=== PATIENT | male | born 1980 | race African-American/Black ===

== ENCOUNTER 2019-01-27 07:02 | Emergency (ER) | payer OTHER ==
--- NOTE | 2019-01-27 07:51 | EDM.PDOC ---
ED HPI GENERAL MEDICAL PROBLEM - General Chief Complaint: General Stated Complaint: SOB Time Seen by Provider: 01/27/19 07:47 - History of Present Illness INITIAL COMMENTS - FREE TEXT/NARRATIVE: HISTORY AND PHYSICAL: History of present illness: Patient 38-year-old male presents with concern of intermittent nausea vomiting diarrhea cough congestion cold symptoms over last week these all improved and on arrival here patient denies chest pain shortness breath abdominal pain or other concern. Review of systems: As per history of present illness and below otherwise all systems reviewed and negative. Past medical history: As per history of present illness and as reviewed below otherwise noncontributory. Surgical history: As per history of present illness and as reviewed below otherwise noncontributory. Social history: No reported history of drug or alcohol abuse. Family history: As per history of present illness and as reviewed below otherwise noncontributory. Physical exam: HEENT: Atraumatic, normocephalic, pupils reactive, negative for conjunctival pallor or scleral icterus, mucous membranes moist, throat clear, neck supple, nontender, trachea midline. Lungs: Clear to auscultation, breath sounds equal bilaterally, chest nontender. Heart: S1S2, regular, negative for clicks, rubs, or JVD. Abdomen: Soft, nondistended, nontender. Negative for masses or hepatosplenomegaly. Negative for costovertebral tenderness. Pelvis: Stable nontender. Genitourinary: Deferred. Rectal: Deferred. Extremities: Atraumatic, negative for cords or calf pain. Neurovascular unremarkable. Neuro: Awake, alert, oriented. Cranial nerves II through XII unremarkable. Cerebellum unremarkable. Motor and sensory unremarkable throughout. Exam nonfocal. Diagnostics: CBC CMP lipase chest x-ray EKG Therapeutics: None Impression: #1 medical screening exam #2 probable viral syndrome Definitive disposition and diagnosis as appropriate pending reevaluation and review of above. Headache Pain Score (Numeric/FACES): 5 - Related Data Allergies Allergy/AdvReac Type Severity Reaction Status Date / Time No Known Allergies Allergy Verified 01/27/19 07:13 Home Meds: Home Meds Cyclobenzaprine [Flexeril] 5 mg PO Q6H PRN 01/27/19 [History] Ibuprofen 800 mg PO Q8H PRN 01/27/19 [History] Past Medical History - Past Health History Medical/Surgical History: Denies Medical/Surgical History Musculoskeletal History: Reports: Back Pain, Chronic - Infectious Disease History Infectious Disease History: Reports: None Social & Family History - Family History Family Medical History: Noncontributory - Tobacco Use Smoking Status *Q: Never Smoker - Caffeine Use Caffeine Use: Reports: None ED ROS GENERAL - Review of Systems Review Of Systems: ROS reveals no pertinent complaints other than HPI. ED EXAM, GENERAL - Physical Exam Exam: See Below (See dictation) Course - Vital Signs Last Recorded V/S: Last Vital Signs Temp 36.2 C 01/27/19 07:14 Pulse 82 01/27/19 07:14 Resp 17 01/27/19 07:14 BP 158/117 H 01/27/19 07:14 Pulse Ox 98 01/27/19 07:14 - Orders/Labs/Meds Orders: Active Orders 24 hr Category Date Time Status EKG 12 Lead [EKG Documentation Completion] [RC] STAT Care 01/27/19 07:39 Active Chest 1V Frontal [CR] Stat Exams 01/27/19 07:38 Ordered CBC WITH AUTO DIFF [HEME] Stat Lab 01/27/19 07:38 Ordered COMPREHENSIVE METABOLIC PN,CMP [CHEM] Stat Lab 01/27/19 07:38 Ordered LIPASE [CHEM] Stat Lab 01/27/19 07:38 Ordered Departure - Departure Time of Disposition: 07:50 Disposition: Home, Self-Care 01 Condition: Good Clinical Impression: Encounter for medical screening examination, Viral syndrome - Discharge Information Referrals: PCP,None [Primary Care Provider] - Additional Instructions: The following information is given to patients seen in the emergency department who are being discharged to home. This information is to outline your options for follow-up care. We provide all patients seen in our emergency department with a follow-up referral. The need for follow-up, as well as the timing and circumstances, are variable depending upon the specifics of your emergency department visit. If you don't have a primary care physician on staff, we will provide you with a referral. We always advise you to contact your personal physician following an emergency department visit to inform them of the circumstance of the visit and for follow-up with them and/or the need for any referrals to a consulting specialist. The emergency department will also refer you to a specialist when appropriate. This referral assures that you have the opportunity for followup care with a specialist. All of these measure are taken in an effort to provide you with optimal care, which includes your followup. Under all circumstances we always encourage you to contact your private physician who remains a resource for coordinating your care. When calling for followup care, please make the office aware that this follow-up is from your recent emergency room visit. If for any reason you are refused follow-up, please contact the [facility] emergency department at and asked to speak to the emergency department charge nurse. Push fluids Motrin/Tylenol as directed follow-up primary medical doctor return as needed as discussed - My Orders Last 24 Hours: My Active Orders 01/27/19 07:38 Chest 1V Frontal [CR] Stat CBC WITH AUTO DIFF [HEME] Stat COMPREHENSIVE METABOLIC PN,CMP [CHEM] Stat LIPASE [CHEM] Stat 01/27/19 07:39 EKG 12 Lead [EKG Documentation Completion] [RC] STAT - Assessment/Plan Last 24 Hours: My Active Orders 01/27/19 07:38 Chest 1V Frontal [CR] Stat CBC WITH AUTO DIFF [HEME] Stat COMPREHENSIVE METABOLIC PN,CMP [CHEM] Stat LIPASE [CHEM] Stat 01/27/19 07:39 EKG 12 Lead [EKG Documentation Completion] [RC] STAT
[2019-01-27 08:11] LABS: BLOOD UREA NITROGEN,BUN 14 mg/dL (7.0-18.0); CARBON DIOXIDE,CO2 28.8 mmol/L (21.0-32.0); CHLORIDE,CL 104 mmol/L (98-107); GLUCOSE RANDOM 83 mg/dL (74-106); LIPASE 117 U/L (73-393); POTASSIUM,K 3.9 mmol/L (3.5-5.1); SODIUM,NA 140 mmol/L (136-148)
--- NOTE | 2019-01-27 08:29 | CR ---
INDICATION: Shortness of breath COMPARISON: none TECHNIQUE: AP erect chest performed at 7:55 a.m. FINDINGS: The lungs are clear. There is no evidence of pneumothorax or pneumomediastinum. The heart, mediastinum and pulmonary vessels are of normal size. There is no evidence of pleural fluid. IMPRESSION: Negative chest. Dictated by Serge Mendoza MD @ Jan 27 2019 8:26AM Signed by Dr. Serge Mendoza @ Jan 27 2019 8:27AM
== END 2019-01-27 08:56 | disposition home or self-care (01) ==
LOC: MW.ED 07:02
DX: Z13.9 Encounter for screening, unspecified (principal); B34.9 Viral infection, unspecified
CPT/HCPCS: 36415; 71045; 71045-26; 80053; 83690; 85025; 93005; 99282; 99284-25